=== PATIENT | female | born 1990 | race Caucasian/White ===

== ENCOUNTER 2019-07-05 05:15 | Day surgery (SDC) | payer OTHER ==
[~2019-07-05 05:15] MED LIST: PROTONIX40 MG PO; ZANTAC300 MG PO
== END 2019-07-05 18:30 | disposition home or self-care (01) ==
LOC: CIR.AMB 05:15
DX: N72 Inflammatory disease of cervix uteri (principal)

== ENCOUNTER 2021-02-09 13:29 | Outpatient (CLI) | payer OTHER | END 2021-02-09 13:43 | disposition home or self-care (01) | LOC: SONOGRAMA 13:29 → MAMO-SONO 14:15 | PROVIDERS: ATTEND Specialist | DX: N60.11 Diffuse cystic mastopathy of right breast (principal); N60.12 Diffuse cystic mastopathy of left breast; R10.31 Right lower quadrant pain; R10.32 Left lower quadrant pain ==

== ENCOUNTER 2021-06-14 15:31 | Emergency (ER) | payer OTHER ==
[~2021-06-14] VITALS: Ht 167.6 cm; Wt 121.1 kg
[2021-06-14] MEDS ORDERED: DICLOFENAC SODI75 MG PO (16:39)
== END 2021-06-14 16:54 | disposition home or self-care (01) ==
LOC: ER 15:31
DX: M94.0 Chondrocostal junction syndrome [Tietze] (principal); R00.2 Palpitations

== ENCOUNTER 2021-10-10 12:09 | Emergency (ER) | payer OTHER ==
[~2021-10-10] VITALS: Ht 167.6 cm; Wt 116.6 kg
[~2021-10-10 12:09] MED LIST changes: +DICLOFENAC SODI75 MG PO
[2021-10-10] MEDS ORDERED: NEXIUM20 M1 PO (12:44)
== END 2021-10-10 17:49 | disposition home or self-care (01) ==
LOC: ER 12:09
DX: K52.9 Noninfective gastroenteritis and colitis, unspecified (principal); K62.5 Hemorrhage of anus and rectum; N20.0 Calculus of kidney

== ENCOUNTER 2022-01-24 16:34 | Emergency (ER) | payer OTHER ==
[~2022-01-24] VITALS: Ht 167.6 cm; Wt 117.9 kg
[~2022-01-24 16:34] MED LIST changes: +NEXIUM20 M1 PO
[2022-01-24] MEDS ORDERED: PROTONIX40 MG PO (16:50)
[2022-01-24] MEDS ORDERED: DICLOFENAC SODI75 MG PO (19:23)
[2022-01-24] MEDS ORDERED: ANALPRAM HC 2.530 GM RECTAL (19:23)
[2022-01-24] MEDS ORDERED: METRONIDAZOLE500 MG PO (19:23)
== END 2022-01-24 20:05 | disposition home or self-care (01) ==
LOC: ER 16:34
DX: K62.89 Other specified diseases of anus and rectum (principal); K64.9 Unspecified hemorrhoids; Z88.2 Allergy status to sulfonamides; Z91.018 Allergy to other foods

== ENCOUNTER 2022-05-04 16:45 | Emergency (ER) | payer OTHER ==
[~2022-05-04] VITALS: Ht 167.6 cm; Wt 122.5 kg
[~2022-05-04 16:45] MED LIST changes: +ANALPRAM HC 2.530 GM RECTAL; +METRONIDAZOLE500 MG PO
== END 2022-05-04 21:52 | disposition home or self-care (01) ==
LOC: ER 16:45
DX: S49.91XA Unspecified injury of right shoulder and upper arm, initial encounter (principal); W19.XXXA Unspecified fall, initial encounter; Y93.9 Activity, unspecified; Y92.9 Unspecified place or not applicable; S29.9XXA Unspecified injury of thorax, initial encounter; S39.92XA Unspecified injury of lower back, initial encounter; M41.87 Other forms of scoliosis, lumbosacral region; Z88.2 Allergy status to sulfonamides

== ENCOUNTER 2022-11-17 09:13 | Emergency (ER) | payer OTHER ==
[~2022-11-17] VITALS: Ht 157.5 cm; Wt 126.1 kg
[2022-11-17] MEDS ORDERED: CLONAZEPAM0.5 MG (09:47)
[2022-11-17] MEDS ORDERED: BUPROPION XL450 MG (09:48)
[2022-11-17] MEDS ORDERED: MACROBID 100 M100 MG PO (14:55)
== END 2022-11-17 15:07 | disposition home or self-care (01) ==
LOC: ER 09:13
DX: Z34.90 Encounter for supervision of normal pregnancy, unspecified, unspecified trimester (principal); N20.0 Calculus of kidney; Z88.2 Allergy status to sulfonamides; Z91.018 Allergy to other foods

== ENCOUNTER 2022-12-06 08:12 | Emergency (ER) | payer OTHER ==
[~2022-12-06] VITALS: Ht 167.6 cm; Wt 127.0 kg
[~2022-12-06 08:12] MED LIST changes: +BUPROPION XL450 MG; +CLONAZEPAM0.5 MG; +MACROBID 100 M100 MG PO
== END 2022-12-06 12:44 | disposition home or self-care (01) ==
LOC: ER 08:12
DX: O26.899 Other specified pregnancy related conditions, unspecified trimester (principal); G44.229 Chronic tension-type headache, not intractable; Z88.2 Allergy status to sulfonamides; Z91.018 Allergy to other foods

== ENCOUNTER → 2023-02-13 | Emergency (ER) | payer OTHER ==
[~2023-02-13] VITALS: Ht 165.1 cm; Wt 81.6 kg
[~2023-02-13] MED LIST changes: +OBSTETRIX ONE 38-1-2; +ONDANSETRON HCL4 MG PO
== END | disposition home or self-care (01) ==
LOC: ER 15:20
DX: O26.892 Other specified pregnancy related conditions, second trimester (principal); O21.9 Vomiting of pregnancy, unspecified; O99.612 Diseases of the digestive system complicating pregnancy, second trimester; K92.89 Other specified diseases of the digestive system; Z3A.16 16 weeks gestation of pregnancy; R10.2 Pelvic and perineal pain; Z88.2 Allergy status to sulfonamides; Z91.018 Allergy to other foods

== ENCOUNTER 2023-03-10 19:57 | Emergency (ER) | payer OTHER ==
[~2023-03-10] VITALS: Ht 167.6 cm; Wt 133.4 kg
[2023-03-10] MEDS ORDERED: ZYRTEC10 M3 PO (21:25)
[2023-03-10] MEDS ORDERED: PROAIR RESPICL90 MCG IH (21:25)
[2023-03-10] MEDS ORDERED: ONDANSETRON ODT8 MG PO (21:25)
[2023-03-10] MEDS ORDERED: ALBUTEROL2.5 MG/3 M IH (21:25)
[2023-03-10] MEDS ORDERED: TUSSIN100 MG/51 PO (21:26)
[2023-03-10] MEDS ORDERED: ZITHROMAX500 MG PO (21:27)
== END 2023-03-10 21:56 | disposition home or self-care (01) ==
LOC: ER 19:57
DX: U07.1 COVID-19 (principal); R53.81 Other malaise; Z3A.20 20 weeks gestation of pregnancy; Z88.2 Allergy status to sulfonamides; Z91.018 Allergy to other foods

== ENCOUNTER → 2023-06-05 10:52 | Outpatient (CLI) | payer OTHER ==
[~2023-06-05 10:52] MED LIST changes: +ALBUTEROL2.5 MG/3 M IH; +ONDANSETRON ODT8 MG PO; +PROAIR RESPICL90 MCG IH; +TUSSIN100 MG/51 PO; +ZITHROMAX500 MG PO; +ZYRTEC10 M3 PO
== END | disposition home or self-care (01) ==
LOC: NST 10:52
PROVIDERS: ATTEND Obstetrics & Gynecology Maternal & Fetal Medicine
DX: Z34.83 Encounter for supervision of other normal pregnancy, third trimester (principal)

== ENCOUNTER 2023-07-03 12:46 | Outpatient (CLI) | payer OTHER | END 2023-07-03 13:43 | disposition home or self-care (01) | LOC: NST 12:46 | PROVIDERS: ATTEND Obstetrics & Gynecology | DX: Z34.83 Encounter for supervision of other normal pregnancy, third trimester (principal) ==

== ENCOUNTER 2023-07-10 10:26 | Outpatient (CLI) | payer OTHER | END 2023-07-10 12:24 | disposition home or self-care (01) | LOC: NST 10:26 | PROVIDERS: ATTEND Obstetrics & Gynecology Gynecology | DX: Z34.83 Encounter for supervision of other normal pregnancy, third trimester (principal) ==

== ENCOUNTER 2023-07-14 10:34 | Inpatient (IN) | payer OTHER ==
[~2023-07-14] VITALS: Ht 167.6 cm; Wt 3.2 kg
[2023-07-14] MEDS ORDERED: OBSTETRIX ONE CAPSUL PO (11:55)
[2023-07-14 12:31] LABS: HEMATOCRIT 32.9 % (36.0-45.00); MEAN CELL VOLUME 72.2 fL (80.00-100.00); MEAN CORPUSCULAR HEMOGLOBIN 24.3 pg (27.00-32.0); MEAN CORPUSCULAR HGB CONC 33.6 g/dl (32.0-36.0); PLATELET COUNT 275 K/uL (150-450); RED BLOOD COUNT 4.55 M/uL (4.00-6.00); RED CELL DISTRIBUTION WIDTH 16.4 % (11.5-14.5)
[2023-07-14 12:52] LABS: INR 0.95; PARTIAL THROMBOPLASTIN TIME 26.2 SECONDS (22.0-34.0)
[2023-07-14 12:59] LABS: ALBUMIN 2.8 gm/dL (3.4-5.0); BILIRUBIN TOTAL 0.28 mg/dL (0.3-1.2); CREATININE SERUM 0.64 mg/dL (0.55-1.02); GFR 108.23; GLOBULINA 3.1 G/DL (2.4-3.5); POTASSIUM 3.89 mEq/L (3.5-5.1); TOTAL PROTEIN 5.9 gm/dL (6.4-8.2)
[2023-07-14 13:19] LABS: URINE APPEARANCE Clear; URINE BILIRRUBIN Negative (NEGATIVE); URINE BLOOD Negative; URINE COLOR Yellow; URINE GLUCOSE Negative (NEGATIVE); URINE LEUKOCYTE Negative; URINE NITRATE Negative; URINE PROTEIN Trace (NEGATIVE); URINE UROBILINOGEN 0.2 E.U./dl
[2023-07-14 13:23] LABS: URINE BACTERIA 372.8 uL (0.0-1933); URINE EPITHELIAL CELLS 7.8 uL (0.0-38.8); URINE WBC 10.5 uL (0.0-23.2)
[2023-07-16 07:24] LABS: HEMATOCRIT 31.3 % (36.0-45.00); MEAN CELL VOLUME 73.8 fL (80.00-100.00); MEAN CORPUSCULAR HEMOGLOBIN 23.7 pg (27.00-32.0); MEAN CORPUSCULAR HGB CONC 32.1 g/dl (32.0-36.0); PLATELET COUNT 239 K/uL (150-450); RED BLOOD COUNT 4.24 M/uL (4.00-6.00); RED CELL DISTRIBUTION WIDTH 16.3 % (11.5-14.5)
== END 2023-07-17 18:19 | disposition home or self-care (01) | DRG 787 ==
LOC: LDR 10:34 → OB/GYN 07-15 12:19
PROVIDERS: Obstetrics & Gynecology; ADMIT Obstetrics & Gynecology Maternal & Fetal Medicine; ATTEND Obstetrics & Gynecology Maternal & Fetal Medicine
PROC: 10D00Z1 Extraction of Products of Conception, Low, Open Approach (ICD-10-PCS; principal; 2023-07-14)
PROC: 4A1HXCZ Monitoring of Products of Conception, Cardiac Rate, External Approach (ICD-10-PCS; 2023-07-14)
DX: O33.8 Maternal care for disproportion of other origin (principal); O10.02 Pre-existing essential hypertension complicating childbirth; Z3A.38 38 weeks gestation of pregnancy; Z37.0 Single live birth; Z20.822 Contact with and (suspected) exposure to COVID-19

== ENCOUNTER 2023-07-19 20:13 | Emergency (ER) | payer OTHER ==
[~2023-07-19] VITALS: Ht 167.6 cm; Wt 117.9 kg
[~2023-07-19 20:13] MED LIST changes: +OBSTETRIX ONE CAPSUL PO
[2023-07-19] MEDS ORDERED: HORIZANT300 MG PO (20:24)
[2023-07-19] MEDS ORDERED: IBU600 MG PO (20:25)
[2023-07-19] MEDS ORDERED: SERTRALINE20 MG/1 ML PO (20:25)
[2023-07-19] MEDS ORDERED: LABETALOL HCL200 MG PO (20:25)
[2023-07-19] MEDS ORDERED: CYCLOBENZAPRINE5 MG PO (20:26)
[2023-07-19 22:15] LABS: HEMOGLOBIN 9.2 g/dL (12.0-15.00); MEAN CORPUSCULAR HEMOGLOBIN 24.1 pg (27.00-32.0); MEAN CORPUSCULAR HGB CONC 32.9 g/dl (32.0-36.0); PLATELET COUNT 323 K/uL (150-450); RED BLOOD COUNT 3.83 M/uL (4.00-6.00); RED CELL DISTRIBUTION WIDTH 16.4 % (11.5-14.5)
[2023-07-19 22:33] LABS: CALCIUM 8.6 mg/dL (8.5-10.1); CREATININE SERUM 0.7 mg/dL (0.55-1.02); GFR 97.6; POTASSIUM 3.24 mEq/L (3.5-5.1)
== END 2023-07-20 01:12 | disposition home or self-care (01) ==
LOC: ER 20:14
PROVIDERS: General Practice
DX: R07.9 Chest pain, unspecified (principal); Z91.018 Allergy to other foods; Z88.2 Allergy status to sulfonamides; M94.0 Chondrocostal junction syndrome [Tietze]

== ENCOUNTER 2024-04-01 12:16 | Outpatient (CLI) | payer OTHER ==
[~2024-04-01 12:16] MED LIST changes: +CYCLOBENZAPRINE5 MG PO; +HORIZANT300 MG PO; +IBU600 MG PO; +LABETALOL HCL200 MG PO; +SERTRALINE20 MG/1 ML PO
== END 2024-04-01 14:02 | disposition home or self-care (01) ==
LOC: SONOGRAMA 12:16
PROVIDERS: ATTEND Obstetrics & Gynecology
DX: R10.10 Upper abdominal pain, unspecified (principal); R10.2 Pelvic and perineal pain; N95.0 Postmenopausal bleeding; N63.21 Unspecified lump in the left breast, upper outer quadrant